=== PATIENT | male | born 2000 | race Two or more races ===

== ENCOUNTER 2023-10-18 14:10 | Emergency (ER) | payer SELFPAY ==
[2023-10-18 14:15] VITALS: BP 122/91; PULSE 113; RESP 18; TEMP 36.4; O2SAT 98
[2023-10-18 19:15] VITALS: BP 135/81; PULSE 90; RESP 18; TEMP 36.5; O2SAT 98
--- NOTE | 2023-10-18 19:59 | ED.NAVMDI ---
HPI - Nausea/Vomiting/Diarrhea General Chief complaint: Abdominal Pain Stated complaint: heat exhaustion? Time Seen by Provider: 10/18/23 19:58 History of Present Illness HPI Narrative: Note initiated when patient was to be roomed however left without being seen. Exam Narrative: GENERAL: Well-appearing, well-nourished, and in no acute distress. HEAD: Normocephalic, atraumatic. EYES: Non injected, non icteric ENT: Nares clear, no rhinorrhea or epistaxis. NECK: Supple. CHEST: Speaking in full sentences. No respiratory distress. HEART: Regular rate and rhythm. . ABDOMEN: Soft, nondistended. EXTREMITIES: Normal range of motion. No lower extremity edema. SKIN: Warm, dry, no rash. NEURO: No focal deficits. Alert and oriented x3. PSYCH: Normal mood and affect. Course Vital Signs Vital signs: Vital Signs Temperature 97.5 F L 10/18/23 14:15 Pulse Rate 113 H 10/18/23 14:15 Respiratory Rate 18 10/18/23 14:15 Blood Pressure 122/91 H 10/18/23 14:15 Pulse Oximetry 98 10/18/23 14:15 Temperature 97.7 F 10/18/23 19:15 Pulse Rate 90 10/18/23 19:15 Respiratory Rate 18 10/18/23 19:15 Blood Pressure 135/81 10/18/23 19:15 Pulse Oximetry 98 10/18/23 19:15 Discharge Plan Discharge Patient Disposition: Left Without Being Sn Triaged Instructions: Antibiotic Form Follow-up/Referrals: UNKNOWN,DOCTOR [Primary Care Provider] -
--- NOTE | 2023-10-18 20:16 | PC.NURSE ---
Pt found outside on bench when called back to room. States he longer wants to be seen and a ride is coming to pick him up.
== END 2023-10-18 19:15 | disposition left against medical advice (07) ==
PROVIDERS: Emergency Provider Student in an Organized Health Care Education/Training Program
DX: R10.9 Unspecified abdominal pain (principal)
CPT/HCPCS: 99199